=== PATIENT | male | born 1955 | race Caucasian/White ===

== ENCOUNTER 2022-04-20 10:14 | Observation (INO) | payer MEDICARE ==
[~2022-04-20] VITALS: Ht 177.8 cm; Wt 99.5 kg
[2022-04-20 10:44] LABS: BASO # 0.1 10^3/uL (0.0-0.2); BASO % 0.7 % (0.0-1.0); EOS # 0.2 10^3/uL (0.0-0.5); HEMATOCRIT 36.5 % (42.0-52.0); LYMPH # 4.6 10^3/uL (1.5-5.0); LYMPH % 47.9 % (24.0-44.0); MEAN CORPUSCULAR HEMOGLOBIN 31.5 pg (27.0-33.0); MEAN CORPUSCULAR HGB CONC 32.9 g/dl (32.0-36.5); MEAN CORPUSCULAR VOLUME 95.8 fl (80.0-96.0); MONO % 35.9 % (2.0-8.0); NEUTROPHILS # 1.3 10^3/uL (1.5-8.5); NEUTROPHILS % 13.4 % (36.0-66.0); PLATELET COUNT, AUTOMATED 169 10^3/uL (150-450); RED BLOOD COUNT 3.81 10^6/uL (4.30-6.10); WHITE BLOOD COUNT 9.7 10^3/uL (4.0-10.0)
[2022-04-20] MEDS ORDERED: ISOVUE-370 76% 100ML VIAL As Ordered ONE (10:50)
[2022-04-20 10:55] LABS: PARTIAL THROMBOPLASTIN TIME 34.2 SECONDS (25.9-37.0)
[2022-04-20 11:05] LABS: MONO # 3.5 10^3/uL (0.0-0.8)
[2022-04-20 11:19] LABS: CK-MB VALUE MASS 2.1 NG/ML (<3.6); MB/CK RELATIVE INDEX 1.78 (< OR =4)
[2022-04-20 11:56] LABS: INR 1.05; PROTHROMBIN TIME 14.1 SECONDS (12.7-14.5)
[2022-04-20] MEDS ORDERED: NS 1,000 ML IV ONE (12:10)
[2022-04-20 12:37] LABS: RSV AMPLIFICATION NEGATIVE (NEGATIVE)
[2022-04-20] MEDS ORDERED: MOM 30ML SUSPENSION UDC PO PRN (13:10)
[2022-04-20] MEDS ORDERED: ACETAMINOPHEN TAB 650MG DOSE (2X325MG) PO PRN (13:10)
[2022-04-20] MEDS ORDERED: ATOR40TA75 PO (13:30)
[2022-04-20] MEDS ORDERED: ONDA-84 PO (13:30)
[2022-04-20] MEDS ORDERED: ACET-1349 PO (13:31)
[2022-04-20] MEDS ORDERED: ASPI81TA27 PO (13:31)
[2022-04-20] MEDS ORDERED: MIRA3350 PO (13:31)
[2022-04-20] MEDS ORDERED: DOCU100C16 PO (13:31)
[2022-04-20] MEDS ORDERED: HOME MED LIST COMPLETE! XX SCH (13:35)
[2022-04-20 13:56] LABS: ALBUMIN 3.7 GM/DL (3.2-5.2); BILIRUBIN,DIRECT 0.2 MG/DL (0.0-0.2); BILIRUBIN,TOTAL 0.4 MG/DL (0.2-1.0); FREE T4 1.27 NG/DL (0.76-1.46); THYROID STIMULATING HORMONE 0.712 uIU/ML (0.358-3.740); TOTAL PROTEIN 7.3 GM/DL (6.4-8.2)
[2022-04-20 17:31] VITALS: BP 157/68
== END 2022-04-20 17:55 | disposition left against medical advice (07) ==
LOC: M ED 10:14 → M ED INP 13:09
PROVIDERS: ADMIT Internal Medicine; ATTEND Internal Medicine
DX: R42 Dizziness and giddiness (principal); C18.1 Malignant neoplasm of appendix; I25.10 Atherosclerotic heart disease of native coronary artery without angina pectoris; Z98.61 Coronary angioplasty status; E11.9 Type 2 diabetes mellitus without complications; Z79.899 Other long term (current) drug therapy; Z79.82 Long term (current) use of aspirin; Z88.0 Allergy status to penicillin
CPT/HCPCS: 70450; 70496; 70498; 71045; 80047; 80076; 82550; 82553; 84439; 84443; 84484; 85025; 85610; 85730; 87631; 93005; 93041; 94760; 96360; 96361; 97112; 97161; 99285; G0378; Q9967